=== PATIENT | male | born 1965 | race African-American/Black ===

== ENCOUNTER 2020-01-05 10:59 | Observation (INO) | payer OTHER ==
[2020-01-05] MEDS ORDERED: NITROGLYCERIN SL TABS 0.4 MG TAB SUBLINGUAL STA (11:05)
[2020-01-05] MEDS ORDERED: MORPHINE SULFATE 4 MG/ML SYRINGE IVP STA ×2 (11:18→11:19)
--- NOTE | 2020-01-05 11:21 | ED ---
Chest Pain HPI - General Chief Complaint: Chest Pain Stated Complaint: Chest Pain Time Seen by Provider: 01/05/20 11:00 Source: patient, EMS, RN notes reviewed Mode of arrival: EMS Limitations: no limitations - History of Present Illness Initial Comments: This is a 54-year-old male with a history of CHF also history of drug abuse who presents to [facility] and complain of having chest pain for last 2 days with radiation down his right arm. The pain was 5/10 severity he was given aspirin 324 mg as well as nitroglycerin which did bring the pain down to 2/10 the fevers chills nausea vomiting sweats or other symptoms. After arrival he states the pain went back up to about 3 or 4/10. He was in treatment for cocaine and alcohol use. He has not had any for 2 days he had did have marijuana this morning. MD Complaint: chest pain - Related Data Home Medications Medication Instructions Recorded Confirmed No Known Home Medications 01/05/20 01/05/20 Allergies Allergy/AdvReac Type Severity Reaction Status Date / Time No Known Allergies Allergy Verified 01/05/20 12:20 Review of Systems ROS Statement: Those systems with pertinent positive or pertinent negative responses have been documented in the HPI. ROS Other: All systems not noted in ROS Statement are negative. EKG Findings - EKG Results: EKG: interpreted by RAPHAEL, [place] [address] QRS duration 92 QT since QTC 3:30/46 minimal pulses criteria for LVH evidence of early repolarization and nonspecific ST-wave configuration.) Past Medical History Past Medical History: Hypertension History of Any Multi-Drug Resistant Organisms: None Reported Past Surgical History: No Surgical Hx Reported Past Psychological History: No Psychological Hx Reported Smoking Status: Current every day smoker Past Alcohol Use History: Abuse, Daily Past Drug Use History: Cocaine, Marijuana General Exam - General Exam Comments Initial Comments: This a well-developed well-nourished awake alert oriented times 3 male Limitations: no limitations General appearance: alert, in no apparent distress Head exam: Present: atraumatic, normocephalic, normal inspection Eye exam: Present: normal appearance, PERRL, EOMI. Absent: scleral icterus, conjunctival injection, periorbital swelling ENT exam: Present: normal exam, mucous membranes moist Neck exam: Present: normal inspection. Absent: tenderness, meningismus, lymphadenopathy Respiratory exam: Present: normal lung sounds bilaterally. Absent: respiratory distress, wheezes, rales, rhonchi, stridor Cardiovascular Exam: Present: regular rate, normal rhythm, normal heart sounds. Absent: systolic murmur, diastolic murmur, rubs, gallop, clicks GI/Abdominal exam: Present: soft, normal bowel sounds. Absent: distended, tenderness, guarding, rebound, rigid Extremities exam: Present: normal inspection, full ROM, normal capillary refill. Absent: tenderness, pedal edema, joint swelling, calf tenderness Back exam: Present: normal inspection Neurological exam: Present: alert, oriented X3, CN II-XII intact Psychiatric exam: Present: normal affect, normal mood Skin exam: Present: warm, dry, intact, normal color. Absent: rash Course Vital Signs 01/05/20 01/05/20 11:05 11:22 Temperature 98.0 F Pulse Rate 73 76 Respiratory 16 16 Rate Blood Pressure 128/91 130/90 O2 Sat by Pulse 99 100 Oximetry - Reevaluation(s) Reevaluation #1: 01/05/20 11:21 EKG showed evidence of early repolarization but not a typical presentation Dr. Weaver was consulted and did come the emergency department to see the patient. Reevaluation #2: 01/05/20 13:09 Age and has been resting currently with no further chest pain. Reevaluation #3: 01/05/20 13:11 Repeat EKG showed a sinus rhythm a 65. Interval 182 QRS duration 90 QT since QTC 382/397 pulse criteria for LVH nonspecific T-wave configuration. Essentially unchanged from the earlier one. Chest Pain MDM - MDM Imaging reviewed no acute findings. Patient does have an echocardiogram with results pending Dr. Weaver did come the emergency department to evaluate the patient. Patient will be admitted with continued enzyme evaluation. I did discuss the case with Dr. Jackson due to the patient's use of alcohol and tobacco the patient will be placed on the alcohol withdrawal protocol as well as a nicotine patch. Critical Care Time Critical Care Time: Yes Total Critical Care Time: 31 Critical Care Time: 31 minutes of critical care time which includes initial presentation with history physical labs x-rays discussed with the paramedics brought the patient. Multiple reevaluation the patient discussed with the project engineering manager discussion with the main physician admission orders and documentation the above Disposition Clinical Impression: Chest pain, ST segment changes on electrocardiogram, Substance abuse Disposition: ADMITTED IP TO THIS HOSP Condition: Stable Referrals: Nonstaff,Physician [Primary Care Provider] - 1-2 days
[2020-01-05 11:24] LABS: Basophils # (A) 0.1 k/uL (0-0.2); Basophils % (A) 1 %; Eosinophils # (A) 0.3 k/uL (0-0.7); Eosinophils % (A) 5 %; HCT 46.5 % (39.0-53.0); HGB 15.7 gm/dL (13.0-17.5); Lymphocytes # (A) 1.6 k/uL (1.0-4.8); Lymphocytes % (A) 31 %; MCHC 33.8 g/dL (31.0-37.0); MCV 91.8 fL (80.0-100.0); Mean Platelet Volume 7.8; Monocytes # (A) 0.3 k/uL (0-1.0); Monocytes % (A) 6 %; Neutrophils # (A) 2.9 k/uL (1.3-7.7); Neutrophils % (A) 56 %; Platelet Count 269 k/uL (150-450); RBC 5.07 m/uL (4.30-5.90); WBC 5.2 k/uL (3.8-10.6)
[2020-01-05 11:33] LABS: ALT 23 U/L (4-49); AST 56 U/L (17-59); African American GFR (CKD) >90 (>60 ml/min/1.73 sqM); Albumin 4.9 g/dL (3.5-5.0); Alkaline Phosphatase 95 U/L (38-126); Anion Gap 8 mmol/L; Blood Urea Nitrogen 18 mg/dL (9-20); Calcium 9.7 mg/dL (8.4-10.2); Carbon Dioxide 25 mmol/L (22-30); Chloride 106 mmol/L (98-107); Creatine Kinase 257 U/L (55-170); Glucose 60 mg/dL (74-99); Magnesium 2.1 mg/dL (1.6-2.3); Non-African American GFR(CKD) 84 (>60 ml/min/1.73 sqM); Sodium 139 mmol/L (137-145); Total Bilirubin 1.3 mg/dL (0.2-1.3); Total Protein 8.8 g/dL (6.3-8.2)
--- NOTE | 2020-01-05 11:51 | XR ---
EXAMINATION TYPE: XR chest 2V DATE OF EXAM: 01/05/2020 COMPARISON: NONE HISTORY: Chest pain. TECHNIQUE: Frontal and lateral views of the chest are obtained. FINDINGS: There is no focal air space opacity, pleural effusion, or pneumothorax seen. The cardiac silhouette size is within normal limits. The osseous structures are intact. IMPRESSION: No acute cardiopulmonary process.
[2020-01-05 12:01] LABS: D-Dimer 0.27 mg/L FEU (<0.60); INR 0.9 (<1.2); Partial Thromboplastin Time 25.3 sec (22.0-30.0); Prothrombin Time 9.4 sec (9.0-12.0)
[2020-01-05] MEDS ORDERED: HEPARIN SODIUM,PORCINE 5,000 UNIT/ML 1 ML VIAL IV ONE (13:14)
[2020-01-05] MEDS ORDERED: NITROGLYCERIN SL TABS 0.4 MG TAB SUBLINGUAL PRN (13:14)
[2020-01-05] MEDS ORDERED: HEPARIN SOD,PORK IN 0.45% NACL 25,000 UNIT in 0.45% NACL 1 250ML.BAG IV SCH (13:15)
[2020-01-05] MEDS ORDERED: NICOTINE 21MG/24HR PATCH TRANSDERM STA (13:16)
[2020-01-05] MEDS ORDERED: LORazepam 2 MG/ML INJ IV PRN ×3 (13:16)
[2020-01-05] MEDS ORDERED: THIAMINE 100 MG/ML 2 ML VIAL IM STA (13:16)
[2020-01-05] MEDS ORDERED: DEXTROSE 5%-0.45% NACL 1,000 ML IV SCH (14:15)
--- NOTE | 2020-01-05 14:17 | P.HPIM ---
History of Present Illness H&P Date: 01/05/20 Chief Complaint: Chest pain This is a 54-year-old male with past medical history significant for alcohol and cocaine abuse who presented to the emergency room with chest pain. Patient said that he wanted to check himself into [facility] today when he started complaining of chest pain radiating down to his right arm. He was instructed to come to the emergency room. He described the pain as sharp and 5 out of 10 in severity mostly in the middle of his chest. He was given sublingual nitro that improved his chest pain. He otherwise denies any fevers or chills. No p alpitation, diaphoresis, or dizziness. Patient denies any known cardiac history. He admitted that he drinks 1 pint of liquor a day. He also uses cocaine on a regular basis. Last use was 2 days ago. Agent is a current every day smoker as well. He also smokes marijuana. He denies any known past medical history. Denies hypertension, hyperlipidemia, or diabetes. Review of Systems Review of system: 14 points review of systems were obtained and were negative except to what were mentioned in the HPI. Past Medical History Past Medical History: Hypertension History of Any Multi-Drug Resistant Organisms: None Reported Past Surgical History: No Surgical Hx Reported Past Psychological History: No Psychological Hx Reported Smoking Status: Current every day smoker Past Alcohol Use History: Abuse, Daily Past Drug Use History: Cocaine, Marijuana Medications and Allergies Home Medications Medication Instructions Recorded Confirmed Type No Known Home Medications 01/05/20 01/05/20 History Allergies Allergy/AdvReac Type Severity Reaction Status Date / Time No Known Allergies Allergy Verified 01/05/20 12:20 Physical Exam Vitals: Vital Signs Temp Pulse Resp BP Pulse Ox 01/05/20 13:45 64 16 115/67 99 01/05/20 12:45 70 16 120/73 99 01/05/20 11:22 76 16 130/90 100 01/05/20 11:05 98.0 F 73 16 128/91 99 Intake and Output 01/04/20 01/05/20 01/05/20 22:59 06:59 14:59 Other: Weight 102.058 kg General: The patient is awake and alert, in no distress Eye: there is normal conjunctiva bilaterally. Neck: The neck is supple, there is no JVD. Cardiovascular: Normal S1-S2, no S3-S4, no murmurs. Respiratory: Lungs clear to auscultation bilaterally Gastrointestinal: Abdomen is soft, nontender Musculoskeletal: There is no pedal edema. Neurological:. Speech is normal. Skin: Skin is warm and dry Results CBC & Chem 7: 01/05/20 11:16 01/05/20 13:37 Labs: Abnormal Lab Results - Last 24 Hours (Table) 01/05/20 01/05/20 Range/Units 11:16 13:37 Potassium 6.0 H 5.9 H (3.5-5.1) mmol/L Glucose 60 L (74-99) mg/dL Creatine Kinase 257 H (55-170) U/L Total Protein 8.8 H (6.3-8.2) g/dL Assessment and Plan Assessment: 1. Chest pain, with typical and atypical features. 12-lead EKG showed no acute ischemic changes. Initial troponin was negative. Continue to trend troponin. We will continue telemetry monitoring. Cardiology consulted. Echocardiogram ordered. Will check fasting lipid profile. Patient was started on IV heparin drip by ED provider 2. Cocaine abuse, counseled extensively to quit. Advised that cocaine can cause chest pain 3. Tobacco and marijuana abuse: Counseled extensively to quit. Nicotine patch ordered. 4. Heavy alcohol abuse: Counseled extensively to quit. [facility] protocol as needed. 5. Hyperkalemia: Hemolyzed sample twice. Patient is very hard to stick. He denies any history of IV drug use. Repeat lab work in the morning.
[2020-01-05] MEDS: THIAMINE 100 MG TAB PO SCH (18:33)
[2020-01-06 01:32] LABS: Amphetamine Screen,Urine Not Detected (NotDetected); Barbiturate Screen,Urine Not Detected (NotDetected); Benzodiazepines Screen,Urine Not Detected (NotDetected); Cocaine Screen,Urine Detected (NotDetected); Methadone Screen, Urine Not Detected (NotDetected); Opiate Screen,Urine Detected (NotDetected); Oxycodone Screen, Urine Not Detected (NotDetected); Phencyclidine Screen,Urine Not Detected (NotDetected); Tricyclic Antidepressant,Urine Not Detected (NotDetected); Urn Cannabinoid Scrn Detected (NotDetected)
[2020-01-06 05:33] LABS: African American GFR (CKD) >90 (>60 ml/min/1.73 sqM); Anion Gap 7 mmol/L; Blood Urea Nitrogen 14 mg/dL (9-20); Calcium 9.6 mg/dL (8.4-10.2); Carbon Dioxide 27 mmol/L (22-30); Chloride 105 mmol/L (98-107); Glucose 102 mg/dL (74-99); Non-African American GFR(CKD) 84 (>60 ml/min/1.73 sqM); Potassium 4.4 mmol/L (3.5-5.1); Sodium 139 mmol/L (137-145)
[2020-01-06 05:34] LABS: Cholesterol 194 mg/dL (<200); HDL Cholesterol 62 mg/dL (40-60); LDL Cholesterol,Calculated 101 mg/dL (0-99); Triglycerides 154 mg/dL (<150)
[2020-01-06] MEDS: THIAMINE 100 MG TAB PO SCH (05:57)
[2020-01-06] MEDS ORDERED: ASPIRIN 325 MG TAB PO SCH (09:00)
--- NOTE | 2020-01-06 11:21 | P.CRDCN ---
History of Present Illness Consult date: 01/06/20 History of present illness: CHIEF COMPLAINT: Chest pain HISTORY OF PRESENT ILLNESS: This is a 54-year old male with a past medical history significant for nicotine dependence. Patient does not follow up outpatient with a civil drafting technician. We have been asked to see the patient in consultation for chest pain. Patient examined this morning at the bedside. Patient reports a history of cocaine use with his last usage around 3 days ago, alcohol abuse and drinks 1 pint of liquor a day, nicotine dependence and smokes one pack of cigarettes per day and marijuana use. The patient states he began having chest pain 3 days ago. The pain is in the midsternal region and radiated to his right arm. He states the pain has been intermittent. He states nothing makes the pain better or worse. He denies shortness of breath. At the time of examination the patient denies any chest pain at rest. He states his chest is sore to touch and with movement. He denies worsening pain with inspiration. DIAGNOSTICS: EKG reveals sinus mechanism with evidence of early repolarization Chest xray negative for acute process Laboratory data: WBC 5.2. Hemoglobin 15.7. Platelet Count 269. D-dimer 0.27. Sodium 139. Potassium 5.9. BUN 18. Creatinine 1.0. Magnesium 2.1. Troponin negative 3 Current home cardiac medications include none. REVIEW OF SYSTEMS: At the time of my exam: CONSTITUTIONAL: Denies fever or chills. HEENT: Denies blurred vision, vision changes, or eye pain. Denies hemoptysis CARDIOVASCULAR: Denies chest pain, orthopnea, PND or palpitations RESPIRATORY: No shortness of breath. GASTROINTESTINAL: Denies abdominal pain. Denies nausea or vomiting. HEMATOLOGIC: Denies bleeding disorders. GENITOURINARY: Denies any blood in urine. SKIN: Denies pruitis. Denies rash. PHYSICAL EXAM: VITAL SIGNS: Reviewed. GENERAL: Well-developed in no acute distress. HEENT: Head is normocephalic. Pupils are equal, round. Sclerae anicteric. Mucous membranes of the mouth are moist. Neck supple. No JVD or thyromegaly LUNGS: Respirations even and unlabored. Lungs essentially clear to auscultation bilaterally. HEART: Regular rate and rhythm. S1 and S2 heard. Mild discomfort upon chest wall palpation ABDOMEN: Soft. Nondistended. Nontender. EXTREMITIES: Normal range of motion. No clubbing or cyanosis. Peripheral pulses intact. No lower extremity edema NEUROLOGIC: Awake and alert. Oriented x 3. ASSESSMENT: Chest pain, atypical, troponin negative x 3 Cocaine abuse Alcohol abuse, 1 pink of liquor daily Nicotine dependence Cannabis use PLAN: Discontinue IV heparin drip Obtain 2D echo to assess cardiac structure and function Patient to undergo stress test this morning to assess for reversible ischemia If stress test is negative, patient may be discharged today from a cardiac perspective Nurse practitioner note has been reviewed by physician. Signing provider agrees with the documented findings, assessment, and plan of care. Past Medical History Past Medical History: Chest Pain / Angina, Hypertension Additional Past Medical History / Comment(s): chronic back pain, pt. states he had moore bite on his right hand in the past History of Any Multi-Drug Resistant Organisms: None Reported Past Surgical History: No Surgical Hx Reported Past Anesthesia/Blood Transfusion Reactions: No Reported Reaction Past Psychological History: Depression Additional Psychological History / Comment(s): pt. states he was recently hospitalized for depression Smoking Status: Current every day smoker Past Alcohol Use History: Abuse, Daily Additional Past Alcohol Use History / Comment(s): pt. states he smokes a pack a day and drinks a pint a day Past Drug Use History: Cocaine, Marijuana Additional Drug Use History / Comment(s): daily cocaine user, last use two days ago - Past Family History Father Family Medical History: Diabetes Mellitus Mother Family Medical History: Diabetes Mellitus Medications and Allergies Home Medications Medication Instructions Recorded Confirmed Type No Known Home Medications 01/05/20 01/05/20 History Allergies Allergy/AdvReac Type Severity Reaction Status Date / Time No Known Allergies Allergy Verified 01/05/20 12:20 Physical Exam Vitals: Vital Signs Temp Pulse Pulse Resp BP BP BP 01/06/20 09:25 97.7 F 61 16 125/80 01/06/20 08:00 61 16 01/06/20 03:30 85 16 114/75 01/06/20 00:00 66 16 134/85 01/05/20 20:00 70 16 141/89 01/05/20 15:00 75 18 01/05/20 14:50 98.1 F 75 18 121/74 01/05/20 13:45 64 16 115/67 01/05/20 12:45 70 16 120/73 01/05/20 11:22 76 16 130/90 Pulse Ox 01/06/20 09:25 97 01/06/20 08:00 01/06/20 03:30 96 01/06/20 00:00 100 01/05/20 20:00 100 01/05/20 15:00 01/05/20 14:50 98 01/05/20 13:45 99 01/05/20 12:45 99 01/05/20 11:22 100 Intake and Output 01/05/20 01/06/20 01/06/20 22:59 06:59 14:59 Intake Total 311.514 87.017 Output Total 300 Balance 311.514 87.017 -300 Intake: Intake, IV Titration 71.514 87.017 Amount Heparin Sod,Pork in 0.45% 71.514 87.017 NaCl 25,000 unit In 0.45 % NaCl 1 250ml.bag @ 9.8 UNITS/KG/HR 10.002 mls/hr IV [facility] Rx#: [id number] Oral 240 Output: Urine 300 Other: Voiding Method Toilet Toilet # Voids 1 1 Weight 93.5 kg Results 01/05/20 11:16 01/06/20 05:05 Cardiac Enzymes 01/05/20 01/05/20 01/05/20 Range/Units 11:16 11:16 13:37 AST 56 (17-59) U/L Troponin I 0.012 <0.012 (0.000-0.034) ng/mL 01/05/20 Range/Units 15:56 AST (17-59) U/L Troponin I <0.012 (0.000-0.034) ng/mL Coagulation 01/05/20 01/05/20 01/06/20 Range/Units 11:16 20:16 05:05 PT 9.4 (9.0-12.0) sec APTT 25.3 25.1 34.4 H (22.0-30.0) sec Lipids 01/06/20 Range/Units 05:05 Triglycerides 154 H (<150) mg/dL Cholesterol 194 (<200) mg/dL HDL Cholesterol 62 H (40-60) mg/dL CBC 01/05/20 Range/Units 11:16 WBC 5.2 (3.8-10.6) k/uL RBC 5.07 (4.30-5.90) m/uL Hgb 15.7 (13.0-17.5) gm/dL Hct 46.5 (39.0-53.0) % Plt Count 269 (150-450) k/uL Comprehensive Metabolic Panel 01/05/20 01/05/20 01/06/20 Range/Units 11:16 13:37 05:05 Sodium 139 139 (137-145) mmol/L Potassium 6.0 H 5.9 H 4.4 (3.5-5.1) mmol/L Chloride 106 105 (98-107) mmol/L Carbon Dioxide 25 27 (22-30) mmol/L BUN 18 14 (9-20) mg/dL Creatinine 1.00 1.01 (0.66-1.25) mg/dL Glucose 60 L 102 H (74-99) mg/dL Calcium 9.7 9.6 (8.4-10.2) mg/dL AST 56 (17-59) U/L ALT 23 (4-49) U/L Alkaline Phosphatase 95 (38-126) U/L Total Protein 8.8 H (6.3-8.2) g/dL Albumin 4.9 (3.5-5.0) g/dL Current Medications Generic Name Dose Route Start Last Admin Trade Name Freq PRN Reason Stop Dose Admin Aspirin 81 mg 01/07/20 09:00 Aspirin 81 Mg PO DAILY CLARA Lorazepam 1 mg 01/05/20 13:16 Lorazepam 2 Mg/Ml Inj IV Q2HR PRN CIWA 8 or 9 Lorazepam 1 mg 01/05/20 13:16 Lorazepam 2 Mg/Ml Inj IV Q1HR PRN CIWA 10 to 15 Lorazepam 2 mg 01/05/20 13:16 Lorazepam 2 Mg/Ml Inj IV 01/07/20 13:16 Q10M PRN CIWA 16 or higher Nitroglycerin 0.4 mg 01/05/20 13:14 Nitroglycerin Sl Tabs 0.4 Mg Tab SUBLINGUAL Q5M PRN Chest Pain Thiamine HCl 100 mg 01/05/20 17:30 01/06/20 05:57 Thiamine 100 Mg Tab PO Not Given BID-W/MEALS CLARA Intake and Output 01/05/20 01/06/20 01/06/20 22:59 06:59 14:59 Intake Total 311.514 87.017 Output Total 300 Balance 311.514 87.017 -300 Intake: Intake, IV Titration 71.514 87.017 Amount Heparin Sod,Pork in 0.45% 71.514 87.017 NaCl 25,000 unit In 0.45 % NaCl 1 250ml.bag @ 9.8 UNITS/KG/HR 10.002 mls/hr IV .[facility] Rx#: [id number] Oral 240 Output: Urine 300 Other: Voiding Method Toilet Toilet # Voids 1 1 Weight 93.5 kg 01/05/20 11:16 01/06/20 05:05
--- NOTE | 2020-01-06 12:52 | ECHOS ---
STRESS ECHOCARDIOGRAM INDICATIONS: Chest pain. MEDICATIONS: None. BASELINE HEART RATE: 63 BASELINE BLOOD PRESSURE: 106/61 MAXIMUM HEART RATE: 142 MAXIMUM BLOOD PRESSURE: 132/42 85% MPHR: 140 100% MPHR: 165 METS: 8.5 MAXIMUM STAGE REACHED: 3 TOTAL EXERCISE TIME: 7:15 CLINICAL INFORMATION: Baseline rhythm is a sinus mechanism, rate of 63, normal axis and intervals, probable pericarditis. Baseline blood pressure 106/61 mmHg. Patient exercised on Bull protocol for 7 minutes, 15 seconds, reaching a peak rate 142 beats per minute which is equal to 87% maximum predicted heart rate. Peak blood pressure 132/42 mmHg. Electrocardiograph monitoring revealed no evidence of diagnostic ischemic ST deviation. FINDINGS: Left ventricular cavity is normal, stress tomographic images reveal homogeneous and he has technetium-99m MDP uptake. The gated SPECT images revealed normal wall motion. There was no evidence of hypokinesis or dyskinesis. CONCLUSION: 1. Decreased exercise tolerance with normal echocardiograph response to exercise. 2. Normal stress echocardiogram with no evidence of stress-induced ischemia. MMODL / IJN: [id number] /
--- NOTE | 2020-01-06 13:00 | P.DS ---
Providers Date of admission: 01/05/20 13:14 Expected date of discharge: 01/06/20 Attending physician: Omkar Rizvi Consults: 01/05/20 13:14 Consult Physician Urgent Consulting Provider: Jem Weaver Consult Reason/Comments: Chest pain, EKG changes Do you want consulting provider notified?: Already Contacted Primary care physician: Physician Nonstaff Hospital Course: This is a 54-year-old male with past medical history significant for alcohol and cocaine abuse who presented to the emergency room with chest pain. Patient said that he wanted to check himself into [place] [facility] when he started complaining of chest pain radiating down to his right arm. He was instructed to come to the emergency room. Patient denies any known cardiac history. He admitted that he drinks 1 pint of liquor a day. He also uses cocaine on a regular basis. Last use was 2 days ago. Agent is a current every day smoker as well. He also smokes marijuana. He denies any known past medical history. Denies hypertension, hyperlipidemia, or diabetes. Patient was admitted to the hospital for further management of his medical problems noted below. 1. Chest pain, with typical and atypical features. 12-lead EKG showed no acute ischemic changes. Serial troponin negative 3 sets. Patient was seen and evaluated by cardiology. He underwent a stress echocardiogram that was negati ve. He was cleared for discharge home. 2. Cocaine abuse, counseled extensively to quit. Advised that cocaine can cause chest pain 3. Tobacco and marijuana abuse: Counseled extensively to quit. Nicotine patch ordered. 4. Heavy alcohol abuse: Counseled extensively to quit. Transportation will be set up for patient to return to [facility] Patient Condition at Discharge: Fair Plan - Discharge Summary Discharge Rx Participant: No New Discharge Prescriptions: No Action No Known Home Medications Discharge Medication List No Known Home Medications 01/05/20 [History] Follow up Appointment(s)/Referral(s): Nonstaff,Physician [Primary Care Provider] - 1-2 days Discharge Disposition: HOME SELF-CARE
[2020-01-06 14:04] VITALS: BP 153/91; PULSE 71; RESP 18; TEMP 98.1
[2020-01-07] MEDS ORDERED: ASPIRIN 81 MG PO SCH (09:00)
--- NOTE | 2020-01-08 13:07 | ECHOF ---
Referral Reason:Chest pain MEASUREMENTS -------- HEIGHT: 170.2 cm WEIGHT: 102.1 kg BP: RVIDd: 3.9 cm (< 3.3) IVSd: 1.8 cm (0.6 - 1.1) LVIDd: 3.7 cm (3.9 - 5.3) LVPWd: 1.3 cm (0.6 - 1.1) IVSs: 1.9 cm LVIDs: 2.7 cm LVPWs: 1.9 cm LAESV Index (A-L): 35.17 ml/m Ao Diam: 3.5 cm (2.0 - 3.7) AV Cusp: 2.4 cm (1.5 - 2.6) MV EXCURSION: 15.271 mm (> 18.000) MV EF SLOPE: 78 mm/s (70 - 150) EPSS: 0.4 cm MV E Vasyl: 0.87 m/s MV DecT: 186 ms MV A Vasyl: 0.71 m/s MV E/A Ratio: 1.24 RAP: 5.00 mmHg RVSP: 27.81 mmHg FINDINGS -------- This was a technically difficult study with suboptimal apical views. The left ventricular size is normal. There is severe concentric left ventricular hypertrophy. Ove rall left ventricular systolic function is low-normal with, an EF between 50 - 55 %. The right ventricle is normal in size. LA is moderately dilated 34-39 ml/m2 The right atrium was not well visualized. 5.0mg of Lumason was utilized for enhancement of images Interatrial and interventricular septum intact. The aortic valve is trileaflet and appears structurally normal. There is no evidence of aortic regu rgitation. There is no evidence of aortic stenosis. [id number] mitral regurgitation is present. Mild tricuspid regurgitation present. There is no evidence of pulmonary hypertension. The right v entricular systolic pressure, as measured by Doppler, is 27.81mmHg. There is no pulmonic regurgitation present. The aortic root size is normal. IVC Not well visulized. There is no pericardial effusion. CONCLUSIONS -------- 1. The left ventricular size is normal. 2. There is severe concentric left ventricular hypertrophy. 3. Overall left ventricular systolic function is low-normal with, an EF between 50 - 55 %. 4. LA is moderately dilated 34-39 ml/m2 5. [id number] mitral regurgitation is present. 6. Mild tricuspid regurgitation present. GENETICS TEACHER: Nadira Stephenson RDCS
== END 2020-01-06 15:01 | disposition home or self-care (01) ==
LOC: EC 10:59 → 3SCARD 13:14 → INTOOBSV 13:14 → 3SCARD 14:05 → UNDODISIN 01-06 15:01
PROVIDERS: ADMIT Internal Medicine; ATTEND Internal Medicine
DX: R07.89 Other chest pain (principal); E87.5 Hyperkalemia; R94.31 Abnormal electrocardiogram [ECG] [EKG]; F17.210 Nicotine dependence, cigarettes, uncomplicated; F14.10 Cocaine abuse, uncomplicated; F12.10 Cannabis abuse, uncomplicated; F10.10 Alcohol abuse, uncomplicated; I50.9 Heart failure, unspecified; G89.29 Other chronic pain; M54.9 Dorsalgia, unspecified; F32.9 Major depressive disorder, single episode, unspecified; Z71.51 Drug abuse counseling and surveillance of drug abuser; Z71.6 Tobacco abuse counseling; Z71.41 Alcohol abuse counseling and surveillance of alcoholic; Z86.79 Personal history of other diseases of the circulatory system; Z87.828 Personal history of other (healed) physical injury and trauma; Y90.9 Presence of alcohol in blood, level not specified; Z83.3 Family history of diabetes mellitus
CPT/HCPCS: 96366 ×2; 93005 ×2; 96376; 96365; 96372; 96375; 99291; 36415; 93351; 85379; 83880; 80061; 80053; 80048; 82550; 83735; 84132; 84484; 85025; 85610; 85730 ×2; 80306; 71046; G0378 ×2; C8929; S4990; J2270; J1644 ×2; J3411; Q9950; 93306; 96374

== ENCOUNTER 2023-01-12 13:33 | Observation (INO) | payer OTHER ==
[2023-01-12] MEDS ORDERED: ASPIRIN 81 MG PO STA (13:54)
[2023-01-12] MEDS ORDERED: NITROGLYCERIN OINT 1 INCH/GM PACKET TOPICAL STA (13:54)
--- NOTE | 2023-01-12 13:56 | ED ---
General Adult HPI - General Source: patient, RN notes reviewed, old records reviewed <Juan F Skinner - Last Filed: 01/12/23 14:34> <Dawit Hallman - Last Filed: 01/12/23 17:31> - General Stated complaint: Chest Pain Time Seen by Provider: 01/12/23 13:45 - History of Present Illness Initial comments: This is a 57-year-old male who presents emergency department with past medical history significant for smoking and high blood pressure. Patient comes in from [facility] area patient is therefore I'll call abuse marijuana and cocaine. Patient states the pain started last night at 8:00 and radiates from the center of his chest to the left side of his chest. Patient states he is mildly short of breath. Patient states she does have a smoker's cough in that continues nothing worse than normal. Patient denies any diaphoretic episodes. Patient denies any nausea vomiting. Patient denies any abdominal pain. Patient denies lightheadedness or dizziness. Patient denies any palpitations. (Juan F Skinner) - Related Data Home Medications Medication Instructions Recorded Confirmed ARIPiprazole [Abilify] 10 mg PO DAILY 01/12/23 01/12/23 Acetaminophen [Tylenol] 650 mg PO Q4H PRN 01/12/23 01/12/23 Calcium/Magnesium/Zinc/Marie D 1 tab PO TID PRN 01/12/23 01/12/23 Ibuprofen [Motrin Ib] 600 mg PO Q6H PRN 01/12/23 01/12/23 Icy Hot (Unknown) 1 applic TOPICAL DIRECTED PRN 01/12/23 01/12/23 Loperamide HCl [Imodium A-D] 4 mg PO QID PRN 01/12/23 01/12/23 Multivitamins, Thera [Multivitamin 1 tab PO DAILY 01/12/23 01/12/23 (formulary)] Sertraline [Zoloft] 50 mg PO DAILY 01/12/23 01/12/23 Thiamine [Vitamin B-1] 100 mg PO DAILY 01/12/23 01/12/23 guaiFENesin [guaiFENesin Oral 200 mg PO Q4H PRN 01/12/23 01/12/23 Solution] Allergies Allergy/AdvReac Type Severity Reaction Status Date / Time No Known Allergies Allergy Verified 01/05/20 12:20 Review of Systems ROS Other: All systems not noted in ROS Statement are negative. <Juan F Skinner - Last Filed: 01/12/23 14:34> ROS Other: All systems not noted in ROS Statement are negative. <Dawit Hallman - Last Filed: 01/12/23 17:31> ROS Statement: Those systems with pertinent positive or pertinent negative responses have been documented in the HPI. Past Medical History Past Medical History: Chest Pain / Angina, Hypertension Additional Past Medical History / Comment(s): chronic back pain, pt. states he had moore bite on his right hand in the past History of Any Multi-Drug Resistant Organisms: None Reported Past Surgical History: No Surgical Hx Reported Past Anesthesia/Blood Transfusion Reactions: No Reported Reaction Past Psychological History: Depression Additional Psychological History / Comment(s): pt. states he was recently hospitalized for depression Smoking Status: Current every day smoker Past Alcohol Use History: Abuse, Daily Additional Past Alcohol Use History / Comment(s): pt. states he smokes a pack a day and drinks a pint a day Past Drug Use History: Cocaine, Marijuana Additional Drug Use History / Comment(s): daily cocaine user, last use two days ago - Past Family History Father Family Medical History: Diabetes Mellitus Mother Family Medical History: Diabetes Mellitus <Juan F Skinner - Last Filed: 01/12/23 14:34> General Exam <Juan F Skinner - Last Filed: 01/12/23 14:34> - General Exam Comments Initial Comments: GENERAL: Patient is well-developed and well-nourished. Patient is nontoxic and well- hydrated and is in mild distress. ENT: Neck is soft and supple. No significant lymphadenopathy is noted. Oropharynx i s clear. Moist mucous membranes. Neck has full range of motion without eliciting any pain. EYES: The sclera were anicteric and conjunctiva were pink and moist. Extraocular movements were intact and pupils were equal round and reactive to light. Eyelids were unremarkable. PULMONARY: Unlabored respirations. Good breath sounds bilaterally. No audible rales rhonchi or wheezing was noted. CARDIOVASCULAR: There is a regular rate and rhythm without any murmurs gallops or rubs. ABDOMEN: Soft and nontender with normal bowel sounds. SKIN: Skin is clear with no lesions or rashes and otherwise unremarkable. NEUROLOGIC: Patient is alert and oriented x3. Cranial nerves II through XII are grossly intact. Motor and sensory are also intact. Normal speech, volume and content. Symmetrical smile. MUSCULOSKELETAL: Normal extremities with adequate strength and full range of motion. LYMPHATICS: No significant lymphadenopathy is noted PSYCHIATRIC: Normal psychiatric evaluation. (Juan F Skinner) Course Vital Signs 01/12/23 01/12/23 01/12/23 13:39 14:00 14:30 Temperature 98.2 F Pulse Rate 67 66 66 Respiratory 18 16 14 Rate Blood Pressure 108/75 115/69 111/74 O2 Sat by Pulse 97 97 96 Oximetry 01/12/23 15:00 Temperature Pulse Rate 67 Respiratory 14 Rate Blood Pressure 110/66 O2 Sat by Pulse 98 Oximetry Medical Decision Making <Juan F Skinner - Last Filed: 01/12/23 14:34> - Lab Data Result diagrams: 01/12/23 14:00 01/12/23 14:00 <Dawit Hallman - Last Filed: 01/12/23 17:31> - Medical Decision Making EKG was interpreted by myself. EKG shows a sinus rhythm at 60 bpm OH interval 170 QRS is 70 QT interval 366 QTC is 383. Patient's EKG shows some ST segment elevation in V3 V4 and V5 and V6 however this was seen on previous EKGs. Was pt. sent in by a medical professional or institution (AMIRAH Villanueva, PRODUCT MANAGENT INTERN, urgent care, hospital, or fpc...) When possible be specific @ -Patient was sent in by [facility] Did you speak to anyone other than the patient for history (EMS, parent, family, police, friend...)? What history was obtained from this source @ -[No] Did you review nursing and triage notes (agree or disagree)? Why? @ -[I reviewed and agree with nursing and triage notes] Were old charts reviewed (outside hosp., previous admission, EMS record, old EKG, old radiological studies, urgent care reports/EKG's, fpc records)? Report findings @ -I reviewed prior charts and EKGs on this patient Differential Diagnosis (chest pain, altered mental status, abdominal pain women, abdominal pain men, vaginal bleeding, weakness, fever, dyspnea, syncope, headache, dizziness, GI bleed, back pain, seizure, CVA, palpatations, mental health, musculoskeletal)? @ -Differential Chest Pain: Stable Angina, Unstable Angina, STEMI, NSTEMI Aortic Dissection, Pneumothorax, Musculoskeletal, Esophageal Spasm GERD, Cholecystitis, Pancreatitis, Zoster, this is not meant to be an all-inclusive list. EKG interpreted by me (3pts min.). @ -[As above] X-rays interpreted by me (1pt min.). @ -Chest x-ray shows no acute abnormality CT interpreted by me (1pt min.). @ -[None done] U/S interpreted by me (1pt. min.). @ -[None done] What testing was considered but not performed or refused? (CT, X-rays, U/S, labs)? Why? @ -[None] What meds were considered but not given or refused? Why? @ -[None] Did you discuss the management of the patient with other professionals (professionals i.e. , PA, PRODUCT MANAGENT INTERN, lab, RT, psych nurse, outreach and education social worker, brown stock washer, teacher, certification officer, shoe caser)? Give summary @ -[No] Was smoking cessation discussed for >3mins.? @ -[No] Was critical care preformed (if so, how long)? @ -[No] Were there social determinants of health that impacted care today? How? (Homelessness, low income, unemployed, alcoholism, drug addiction, transportation, low edu. Level, literacy, decrease access to med. care, nursing home, rehab)? @ -[No] Was there de-escalation of care discussed even if they declined (Discuss DNR or withdrawal of care, Hospice)? DNR status @ -[No] What co-morbidities impacted this encounter? (DM, HTN, Smoking, COPD, CAD, Cancer, CVA, ARF, Chemo, Hep., AIDS, mental health diagnosis, sleep apnea, morbid obesity)? @ -[None] Was patient admitted / discharged? Hospital course, mention meds given and route, prescriptions, significant lab abnormalities, going to OR and other pertinent info. @ -Patient was given aspirin and Nitropaste emergency department. Patient continued to have some anterior chest pain. EKG was similar to the previous EKG. Patient was signed out to Dr. Hallman and he will be taking over the care of this patient at 3 PM. (Juan F Skinner) Patient signed out to me pending results of workup. Initially seen for chest pain from [facility]. Previous provider artery spoke with cardiology who agre ed to evaluate the patient. Is an atypical type of chest pain that seems. Currently has nitro paste. When I evaluated the patient he has no pain. Was given 324 mg of aspirin as well. He has no cardiac history. Does have a polysubstance abuse history. Last used 21 days ago. Chest x-ray as interpreted by myself showed no signs of acute ischemia. EKG showed chronic changes, suspicious for a point elevation but no acute changes. Multiple comparative EKG is available. Patient's labs remarkable for an undetectable troponin as well as a d-dimer within normal limits. Lites within acceptable limits. I discussed results of the patient. He will be admitted as a cardiac observation admissi on. We will trend the troponin. Cardiology already ordered an echo. They will be consulted. Patient was in agreement with this plan. He is asking for a sandwich. Diagnosis/symptom? @ -Chest pain Acute, or Chronic, or Acute on Chronic? @ -Acute Uncomplicated (without systemic symptoms) or Complicated (systemic symptoms)? @ -Uncomplicated Side effects of treatment? @ -none Exacerbation, Progression, or Severe Exacerbation] @ -no Poses a threat to life or bodily function? @ -Possibly, yes depending on etiology which currently is undetermined. (Dawit Hallman) - Lab Data Lab Results 01/12/23 01/12/23 01/12/23 Range/Units 14:00 14:00 14:00 WBC 4.5 (3.8-10.6) k/uL RBC 4.57 (4.30-5.90) m/uL Hgb 14.1 (13.0-17.5) gm/dL Hct 41.7 (39.0-53.0) % MCV 91.2 (80.0-100.0) fL MCH 30.9 (25.0-35.0) pg MCHC 33.9 (31.0-37.0) g/dL RDW 13.7 (11.5-15.5) % Plt Count 223 (150-450) k/uL MPV 7.5 Neutrophils % 50 % Lymphocytes % 36 % Monocytes % 7 % Eosinophils % 3 % Basophils % 1 % Neutrophils # 2.3 (1.3-7.7) k/uL Lymphocytes # 1.6 (1.0-4.8) k/uL Monocytes # 0.3 (0-1.0) k/uL Eosinophils # 0.2 (0-0.7) k/uL Basophils # 0.0 (0-0.2) k/uL PT 9.6 L (10.0-12.5) sec INR 0.8 (<1.2) APTT 24.8 (22.0-30.0) sec D-Dimer 0.26 (<0.60) mg/L FEU Sodium 138 (137-145) mmol/L Potassium 4.6 (3.5-5.1) mmol/L Chloride 103 (98-107) mmol/L Carbon Dioxide 27 (22-30) mmol/L Anion Gap 8 mmol/L BUN 20 (9-20) mg/dL Creatinine 0.82 (0.66-1.25) mg/dL Est GFR (CKD-EPI)AfAm >90 (>60 ml/min/1.73 sqM) Est GFR (CKD-EPI)NonAf >90 (>60 ml/min/1.73 sqM) Glucose 87 (74-99) mg/dL Calcium 9.6 (8.4-10.2) mg/dL Magnesium 1.8 (1.6-2.3) mg/dL Total Bilirubin 0.3 (0.2-1.3) mg/dL AST 26 (17-59) U/L ALT 23 (4-49) U/L Alkaline Phosphatase 77 (38-126) U/L Troponin I (0.000-0.034) ng/mL Total Protein 6.8 (6.3-8.2) g/dL Albumin 4.0 (3.5-5.0) g/dL 01/12/23 Range/Units 14:00 WBC (3.8-10.6) k/uL RBC (4.30-5.90) m/uL Hgb (13.0-17.5) gm/dL Hct (39.0-53.0) % MCV (80.0-100.0) fL MCH (25.0-35.0) pg MCHC (31.0-37.0) g/dL RDW (11.5-15.5) % Plt Count (150-450) k/uL MPV Neutrophils % % Lymphocytes % % Monocytes % % Eosinophils % % Basophils % % Neutrophils # (1.3-7.7) k/uL Lymphocytes # (1.0-4.8) k/uL Monocytes # (0-1.0) k/uL Eosinophils # (0-0.7) k/uL Basophils # (0-0.2) k/uL PT (10.0-12.5) sec INR (<1.2) APTT (22.0-30.0) sec D-Dimer (<0.60) mg/L FEU Sodium (137-145) mmol/L Potassium (3.5-5.1) mmol/L Chloride (98-107) mmol/L Carbon Dioxide (22-30) mmol/L Anion Gap mmol/L BUN (9-20) mg/dL Creatinine (0.66-1.25) mg/dL Est GFR (CKD-EPI)AfAm (>60 ml/min/1.73 sqM) Est GFR (CKD-EPI)NonAf (>60 ml/min/1.73 sqM) Glucose (74-99) mg/dL Calcium (8.4-10.2) mg/dL Magnesium (1.6-2.3) mg/dL Total Bilirubin (0.2-1.3) mg/dL AST (17-59) U/L ALT (4-49) U/L Alkaline Phosphatase (38-126) U/L Troponin I <0.012 (0.000-0.034) ng/mL Total Protein (6.3-8.2) g/dL Albumin (3.5-5.0) g/dL Disposition <Juan F Skinner - Last Filed: 01/12/23 14:34> Time of Disposition: 16:30 <Dawit Hallman - Last Filed: 01/12/23 17:31> Clinical Impression: Chest pain Disposition: ADMITTED IP TO THIS [facility] Condition: Stable Referrals: Nonstaff,Physician [Primary Care Provider] - 1-2 days
--- NOTE | 2023-01-12 14:18 | XR ---
EXAMINATION TYPE: XR chest 2V DATE OF EXAM: 01/12/2023 COMPARISON: 01/05/2020 HISTORY: Shortness of breath TECHNIQUE: Frontal and lateral views of the chest are obtained. FINDINGS: Scattered senescent parenchymal changes noted. Hyperinflation compatible with COPD. No evidence for infiltrate. No evidence for atelectasis. Heart size is stable. Mediastinal structures are stable and grossly unremarkable. No evidence for hilar prominence. Degenerative changes dorsal spine. IMPRESSION: 1. No evidence for acute pulmonary disease.
[2023-01-12 14:53] LABS: Basophils % (A) 1 %; Eosinophils # (A) 0.2 k/uL (0-0.7); Eosinophils % (A) 3 %; HCT 41.7 % (39.0-53.0); HGB 14.1 gm/dL (13.0-17.5); Lymphocytes # (A) 1.6 k/uL (1.0-4.8); Lymphocytes % (A) 36 %; MCH 30.9 pg (25.0-35.0); MCHC 33.9 g/dL (31.0-37.0); MCV 91.2 fL (80.0-100.0); Mean Platelet Volume 7.5; Monocytes # (A) 0.3 k/uL (0-1.0); Monocytes % (A) 7 %; Neutrophils # (A) 2.3 k/uL (1.3-7.7); Neutrophils % (A) 50 %; Platelet Count 223 k/uL (150-450); RBC 4.57 m/uL (4.30-5.90); RDW 13.7 % (11.5-15.5); WBC 4.5 k/uL (3.8-10.6)
[2023-01-12] MEDS: ASPIRIN 81 MG PO SCH (15:05)
[2023-01-12 15:06] LABS: INR 0.8 (<1.2); Partial Thromboplastin Time 24.8 sec (22.0-30.0); Prothrombin Time 9.6 sec (10.0-12.5)
[2023-01-12 15:13] LABS: ALT 23 U/L (4-49); AST 26 U/L (17-59); African American GFR (CKD) >90 (>60 ml/min/1.73 sqM); Alkaline Phosphatase 77 U/L (38-126); Anion Gap 8 mmol/L; Blood Urea Nitrogen 20 mg/dL (9-20); Calcium 9.6 mg/dL (8.4-10.2); Carbon Dioxide 27 mmol/L (22-30); Chloride 103 mmol/L (98-107); Glucose 87 mg/dL (74-99); Magnesium 1.8 mg/dL (1.6-2.3); Non-African American GFR(CKD) >90 (>60 ml/min/1.73 sqM); Potassium 4.6 mmol/L (3.5-5.1); Sodium 138 mmol/L (137-145); Total Bilirubin 0.3 mg/dL (0.2-1.3); Total Protein 6.8 g/dL (6.3-8.2)
[2023-01-12] MEDS ORDERED: LOPERAMIDE 2 MG CAP PO PRN (15:52)
[2023-01-12] MEDS ORDERED: ACETAMINOPHEN TAB 325 MG TAB PO PRN (15:52)
[2023-01-12] MEDS ORDERED: guaiFENesin SYRUP 100MG/5ML 200 MG/10 ML CUP PO PRN (15:52)
[2023-01-12] MEDS ORDERED: NALOXONE 0.4 MG/ML 1 ML VIAL IV PRN (16:30)
[2023-01-12] MEDS: HEPARIN SODIUM,PORCINE 5,000 UNIT/ML 1 ML VIAL SQ SCH (23:52)
[2023-01-13 00:15] LABS: Chol/HDL Ratio 2.94 Ratio; LDL Cholesterol,Calculated 97.4 mg/dL (0.0-131.0)
--- NOTE | 2023-01-13 07:07 | P.CRDCN ---
History of Present Illness History of present illness: HISTORY OF PRESENT ILLNESS: This is a 57-year-old male with a past medical history significant for nicotine dependence, cocaine use, and alcohol abuse. Patient does not follow with a vocal music instructor. We have been asked to see the patient in consultation for chest pain. Patient examined at the bedside in the emergency room. Patient was transferred to the hospital from [place] secondary to chest pain. Patient states he began having chest pain yesterday in the middle of his chest. He reports the pain radiated down his arm. He states the pain has been constant. He states there is nothing that has made the pain better. He reports the pain is worse with deep inspiration and also with movement. The patient denies any previous cardiac history. He is a current cigarette smoker. He also reports a history of cocaine abuse and alcohol abuse and states he has been sober for 10 days. * EKG reveals sinus mechanism with early repolarization, similar to previous EKG. No signs of acute ischemia * Chest xray negative for pulmonary process * Current home cardiac medications include none * Echocardiogram completed in December 2019 revealed ejection fraction 50-55% with mild to moderate mitral regurgitation and mild tricuspid regurgitation * Patient underwent stress echocardiogram in December 2019 which was negative for ischemia REVIEW OF SYSTEMS: At the time of my exam: CONSTITUTIONAL: Denies fever or chills. HEENT: Denies blurred vision, vision changes, or eye pain. Denies hemoptysis CARDIOVASCULAR: Denies chest pain. Denies orthopnea. Denies PND. Denies palpitations RESPIRATORY: Denies shortness of breath. GASTROINTESTINAL: Denies abdominal pain. Denies nausea or vomiting. HEMATOLOGIC: Denies bleeding disorders. GENITOURINARY: Denies any blood in urine. SKIN: Denies pruitis. Denies rash. PHYSICAL EXAM: VITAL SIGNS: Reviewed. GENERAL: Well-developed in no acute distress. HEENT: Head is normocephalic. Pupils are equal, round. Sclerae anicteric. Mucous membranes of the mouth are moist. Neck supple. No JVD or thyromegaly LUNGS: Respirations even and unlabored. Lungs essentially clear to auscultation bilaterally. HEART: Regular rate and rhythm. S1 and S2 heard. Systolic murmur noted ABDOMEN: Soft. Nondistended. Nontender. EXTREMITIES: Normal range of motion. No clubbing or cyanosis. Peripheral pulses intact. No lower extremity edema NEUROLOGIC: Awake and alert. Oriented x 3. ASSESSMENT: Chest pain, atypical, reproducible with deep inspiration and movement Nicotine dependence Cocaine use Alcohol abuse PLAN: Obtain 2-D echo to assess cardiac structure and function Trend troponins Check hemoglobin A1c and lipid panel Add aspirin 81 mg daily Further recommendations pending patient's course Nurse practitioner note has been reviewed by physician. Signing provider agrees with the documented findings, assessment, and plan of care. Past Medical History Past Medical History: Chest Pain / Angina, Hypertension Additional Past Medical History / Comment(s): chronic back pain, pt. states he had moore bite on his right hand in the past History of Any Multi-Drug Resistant Organisms: None Reported Past Surgical History: No Surgical Hx Reported Past Anesthesia/Blood Transfusion Reactions: No Reported Reaction Past Psychological History: Depression Additional Psychological History / Comment(s): pt. states he was recently hospitalized for depression Smoking Status: Current every day smoker Past Alcohol Use History: Abuse, Daily Additional Past Alcohol Use History / Comment(s): pt. states he smokes a pack a day and drinks a pint a day Past Drug Use History: Cocaine, Marijuana Additional Drug Use History / Comment(s): daily cocaine user, last use two days ago - Past Family History Father Family Medical History: Diabetes Mellitus Mother Family Medical History: Diabetes Mellitus Medications and Allergies Home Medications Medication Instructions Recorded Confirmed Type ARIPiprazole [Abilify] 10 mg PO DAILY 01/12/23 01/12/23 History Acetaminophen [Tylenol] 650 mg PO Q4H PRN 01/12/23 01/12/23 History Calcium/Magnesium/Zinc/Marie D 1 tab PO TID PRN 01/12/23 01/12/23 History Ibuprofen [Motrin Ib] 600 mg PO Q6H PRN 01/12/23 01/12/23 History Icy Hot (Unknown) 1 applic TOPICAL DIRECTED PRN 01/12/23 01/12/23 History Loperamide HCl [Imodium A-D] 4 mg PO QID PRN 01/12/23 01/12/23 History Multivitamins, Thera [Multivitamin 1 tab PO DAILY 01/12/23 01/12/23 History (formulary)] Sertraline [Zoloft] 50 mg PO DAILY 01/12/23 01/12/23 History Thiamine [Vitamin B-1] 100 mg PO DAILY 01/12/23 01/12/23 History guaiFENesin [guaiFENesin Oral 200 mg PO Q4H PRN 01/12/23 01/12/23 History Solution] Allergies Allergy/AdvReac Type Severity Reaction Status Date / Time No Known Allergies Allergy Verified 01/05/20 12:20 Physical Exam Vitals: Vital Signs Temp Pulse Resp BP Pulse Ox 01/13/23 04:15 70 16 117/82 96 01/13/23 02:00 72 17 90/48 97 01/13/23 01:00 70 18 114/66 97 01/13/23 00:00 63 17 121/73 96 01/12/23 19:00 98.1 F 72 16 117/85 95 01/12/23 17:00 16 01/12/23 15:00 67 14 110/66 98 01/12/23 14:30 66 14 111/74 96 01/12/23 14:00 66 16 115/69 97 01/12/23 13:39 98.2 F 67 18 108/75 97 Results 01/12/23 14:00 01/12/23 14:00 Cardiac Enzymes 01/12/23 01/12/23 01/12/23 Range/Units 14:00 14:00 17:36 AST 26 (17-59) U/L Troponin I <0.012 <0.012 (0.000-0.034) ng/mL 01/12/23 Range/Units 20:47 AST (17-59) U/L Troponin I <0.012 (0.000-0.034) ng/mL Coagulation 01/12/23 Range/Units 14:00 PT 9.6 L (10.0-12.5) sec APTT 24.8 (22.0-30.0) sec Lipids 01/12/23 Range/Units 14:00 Triglycerides 209.00 H (0.00-149.00) mg/dL Cholesterol 211.00 H (0.00-200.00) mg/dL HDL Cholesterol 71.80 H (40.00-60.00) mg/dL Cholesterol/HDL Ratio 2.94 Ratio CBC 01/12/23 Range/Units 14:00 WBC 4.5 (3.8-10.6) k/uL RBC 4.57 (4.30-5.90) m/uL Hgb 14.1 (13.0-17.5) gm/dL Hct 41.7 (39.0-53.0) % Plt Count 223 (150-450) k/uL Comprehensive Metabolic Panel 01/12/23 Range/Units 14:00 Sodium 138 (137-145) mmol/L Potassium 4.6 (3.5-5.1) mmol/L Chloride 103 (98-107) mmol/L Carbon Dioxide 27 (22-30) mmol/L BUN 20 (9-20) mg/dL Creatinine 0.82 (0.66-1.25) mg/dL Glucose 87 (74-99) mg/dL Calcium 9.6 (8.4-10.2) mg/dL AST 26 (17-59) U/L ALT 23 (4-49) U/L Alkaline Phosphatase 77 (38-126) U/L Total Protein 6.8 (6.3-8.2) g/dL Albumin 4.0 (3.5-5.0) g/dL Current Medications Generic Name Dose Route Start Last Admin Trade Name Freq PRN Reason Stop Dose Admin Acetaminophen 650 mg 01/12/23 15:52 Acetaminophen Tab 325 Mg Tab PO Q4H PRN Fever and/ or Pain Aripiprazole 10 mg 01/13/23 09:00 Aripiprazole 10 Mg Tab PO DAILY [facility] Aspirin 81 mg 01/12/23 15:15 01/12/23 15:05 Aspirin 81 Mg PO Not Given DAILY [facility] Guaifenesin 200 mg 01/12/23 15:52 Guaifenesin Syrup 100mg/5ml 200 Mg/10 Ml Cup PO Q4H PRN Cough Heparin Sodium (Porcine) 5,000 unit 01/13/23 00:00 01/12/23 23:52 Heparin Sodium,Porcine 5,000 Unit/Ml 1 Ml Vial SQ 5,000 unit Q8HR CLARA Administration Loperamide HCl 4 mg 01/12/23 15:52 Loperamide 2 Mg Cap PO QID PRN Loose Stool Multivitamins 1 each 01/13/23 09:00 Multivitamins, Thera 1 Each Tab PO DAILY CLARA Naloxone HCl 0.2 mg 01/12/23 16:30 Naloxone 0.4 Mg/Ml 1 Ml Vial IV Q2M PRN Opioid Reversal Sertraline HCl 50 mg 01/13/23 09:00 Sertraline 50 Mg Tab PO DAILY [facility] 01/12/23 14:00 01/12/23 14:00
[2023-01-13] MEDS: ARIPiprazole 10 MG TAB PO SCH (08:09)
[2023-01-13] MEDS: SERTRALINE 50 MG TAB PO SCH (08:09)
[2023-01-13] MEDS: ATORVASTATIN 40 MG TAB PO SCH (08:09)
[2023-01-13] MEDS: MULTIVITAMINS, THERA 1 EACH TAB PO SCH (08:09)
[2023-01-13] MEDS: ASPIRIN 81 MG PO SCH (08:09)
[2023-01-13] MEDS: HEPARIN SODIUM,PORCINE 5,000 UNIT/ML 1 ML VIAL SQ SCH ×2 (08:09→14:52)
[2023-01-13 11:08] LABS: Basophils # (A) 0.03 X 10*3/uL (0.00-0.10); Basophils % (A) 0.7 %; Eosinophils # (A) 0.15 X 10*3/uL (0.04-0.35); Eosinophils % (A) 3.7 %; HGB 14.1 d/dL (13.0-17.0); Lymphocytes # (A) 1.83 X 10*3/uL (0.90-5.00); Lymphocytes % (A) 44.9 %; MCH 30.2 pg (27.0-32.0); MCHC 33.6 d/dL (32.0-37.0); MCV 89.9 FL (80.0-97.0); Mean Platelet Volume 9.7 FL (9.5-12.2); Monocytes % (A) 9.8 %; NRBC Per 100 WBC 0 X 10*3/uL (0.00-0.01); Neutrophils # (A) 1.66 X 10*3/uL (1.80-7.70); Neutrophils % (A) 40.7 %; Platelet Count 211 X 10*3/uL (140-440); RBC 4.67 X 10*6/uL (4.40-5.60); RDW 13.2 % (11.5-14.5); WBC 4.08 X 10*3/uL (4.50-10.00)
[2023-01-13 11:21] LABS: Calcium 9.7 mg/dL (8.7-10.3); Carbon Dioxide 27.1 mmol/L (21.6-31.8); Chloride 102 mmol/L (96-109); Glucose 83 mg/dL (70-110); Potassium 4.5 mmol/L (3.5-5.5); Sodium 140 mmol/L (135-145)
--- NOTE | 2023-01-13 12:25 | CA ---
Transthoracic Echo Report Name: Mark Anguiano Age: 57 Gender: M : 1965 Exam Date: 01/13/2023 11:09 Exam Location: [facility] Ht (in): 67 Wt (lb): 165 Ordering Physician: Shameka Echevarria Attending/Referring Phys: Check Totaler Nadira Stephenson RDCS Procedure CPT: Indications: LV function, CP Cardiac Hx: Technical Quality: Fair Contrast 1: Total Dose (mL): Contrast 2: Total Dose (mL): MEASUREMENTS (Male / Female) Normal Values 2D ECHO LV Diastolic Diameter PLAX 3.6 cm 4.2 - 5.9 / 3.9 - 5.3 cm LV Systolic Diameter PLAX 2.2 cm IVS Diastolic Thickness 1.3 cm 0.6 - 1.0 / 0.6 - 0.9 cm LVPW Diastolic Thickness 1.2 cm 0.6 - 1.0 / 0.6 - 0.9 cm LV Relative Wall Thickness 0.7 RV Internal Dim ED PLAX 3.9 cm LA Volume 61.4 cm??? 18 - 58 / 22 - 52 cm??? LA Volume Index 32.5 cm???/m??? 16 - 28 cm???/m??? M-MODE Aortic Root Diameter MM 3.2 cm LA Systolic Diameter MM 3.6 cm LA Ao Ratio MM 1.1 AV Cusp Separation MM 1.8 cm DOPPLER AV Peak Velocity 189.6 cm/s AV Peak Gradient 14.4 mmHg AV Mean Velocity 117.5 cm/s AV Mean Gradient 6.2 mmHg AV Velocity Time Integral 30.4 cm LVOT Peak Velocity 131.0 cm/s LVOT Peak Gradient 6.9 mmHg LVOT Velocity Time Integral 26.7 cm MV Area PHT 2.6 cm??? Mitral E Point Velocity 70.5 cm/s Mitral A Point Velocity 53.9 cm/s Mitral E to A Ratio 1.3 MV Deceleration Time 290.6 ms MV E' Velocity 9.5 cm/s Mitral E to MV E' Ratio 7.4 TR Peak Velocity 249.2 cm/s TR Peak Gradient 24.8 mmHg Right Ventricular Systolic Press 29.4 mmHg FINDINGS Left Ventricle Mildly increased left ventricular wall thickness. Left ventricular cavity size normal. Normal left ventricular systolic function with no obvious regional wall motion abnormalities. Left ventricular ejection fraction is estimated at 55-60 %. Right Ventricle Very Mild right ventricular dilatation. Normal right ventricle function. Right ventricular systolic pressure within normal limits. Right Atrium Normal right atrial size. Left Atrium Mildly increased left atrial volume. Mitral Valve Structurally normal mitral valve. No mitral stenosis, regurgitation or prolapse. Aortic Valve Trileaflet aortic valve. No aortic stenosis. Trace aortic regurgitation. Aortic valve sclerosis. Tricuspid Valve Structurally normal tricuspid valve. Mild tricuspid regurgitation. Pulmonic Valve Structurally normal pulmonic valve. Trace pulmonic regurgitation. Pericardium No pericardial effusion. Aorta Normal size aortic root and proximal ascending aorta. CONCLUSIONS LVH with preserved systolic function Previewed by: Dr. Chauncey Hamm MD (Electronically Signed) Final Date: 13 January 2023 12:24
--- NOTE | 2023-01-13 12:48 | P.PN ---
Subjective Progress Note Date: 01/13/23 HISTORY OF PRESENT ILLNESS: This is a 57-year-old male with a past medical history significant for nicotine dependence, cocaine use, and alcohol abuse. Patient does not follow with a blueprinter. We have been asked to see the patient in consultation for chest pain. Patient examined at the bedside in the emergency room. Patient was transferred to the hospital from [place] secondary to chest pain. Patient states he began having chest pain yesterday in the middle of his chest. He reports the pain radiated down his arm. He states the pain has been constant. He states there is nothing that has made the pain better. He reports the pain is worse with deep inspiration and also with movement. The patient denies any previous cardiac history. He is a current cigarette smoker. He also reports a history of cocaine abuse and alcohol abuse and states he has been sober for 10 days. * EKG reveals sinus mechanism with early repolarization, similar to previous EKG. No signs of acute ischemia * Chest xray negative for pulmonary process * Current home cardiac medications include none * Echocardiogram completed in December 2019 revealed ejection fraction 50-55% with mild to moderate mitral regurgitation and mild tricuspid regurgitation * Patient underwent stress echocardiogram in December 2019 which was negative for ischemia 01/13 Patient is seen today on the observation unit. Echocardiogram reveals LVH with preserved systolic function. Troponins are negative 3. BMP is normal. CBC unremarkable. Hemoglobin A1c 5.7. Blood pressure 126/75, heart rate in the 60s. PHYSICAL EXAM: VITAL SIGNS: Reviewed. GENERAL: Well-developed in no acute distress. HEENT: Head is normocephalic. Pupils are equal, round. Sclerae anicteric. Mucous membranes of the mouth are moist. Neck supple. No JVD or thyromegaly LUNGS: Respirations even and unlabored. Lungs essentially clear to auscultation bilaterally. HEART: Regular rate and rhythm. S1 and S2 heard. Systolic murmur noted EXTREMITIES: Normal range of motion. No clubbing or cyanosis. Peripheral pulses intact. No lower extremity edema NEUROLOGIC: Awake and alert. Oriented x 3. ASSESSMENT: Chest pain, atypical, reproducible with deep inspiration and movement Nicotine dependence Cocaine use Alcohol abuse PLAN: Patient is cleared from cardiology for discharge Recommend continuing atorvastatin. Cardiology will sign off this case and follow on an as-needed basis. Please reconsult for any new concerns. Nurse practitioner note has been reviewed by physician. Signing provider agrees with the documented findings, assessment, and plan of care. Objective - Vital Signs Vital signs: Vital Signs Temp 98.1 F 01/13/23 07:10 Pulse 62 01/13/23 07:10 Resp 16 01/13/23 07:10 BP 123/82 01/13/23 07:10 Pulse Ox 98 01/13/23 07:10 FiO2 Intake & Output 01/12/23 01/13/23 01/13/23 18:59 06:59 18:59 Weight 74.843 kg - Labs CBC & Chem 7: 01/13/23 06:56 01/13/23 06:56 Labs: Abnormal Lab Results - Last 24 Hours (Table) 01/12/23 01/12/23 Range/Units 14:00 14:00 PT 9.6 L (10.0-12.5) sec Triglycerides 209.00 H (0.00-149.00) mg/dL Cholesterol 211.00 H (0.00-200.00) mg/dL VLDL Cholesterol, Calc 41.80 H (5.00-40.00) mg/dL HDL Cholesterol 71.80 H (40.00-60.00) mg/dL
--- NOTE | 2023-01-13 17:48 | CT ---
EXAMINATION TYPE: CT chest wo con CT DLP: 301.3 mGycm, Automated exposure control for dose reduction was used. DATE OF EXAM: 01/13/2023 4:31 PM COMPARISON: Chest radiograph from same day. CLINICAL INDICATION:Male, 57 years old with history of cp; , chest pain TECHNIQUE: Multiple axial images were obtained through the chest. Sagittal and coronal reformats were created for review. Contrast used: mL of (None if empty) Oral contrast used: (None if empty) FINDINGS: LUNGS/ PLEURA: Mild emphysema changes in the lung apices. No focal consolidation, pneumothorax or ple ural effusion. AIRWAY: Patent and unremarkable. HEART: Size within normal limits. MEDIASTINUM: No gross evidence of adenopathy. VASCULATURE: No aortic aneurysm. MUSCULOSKELETAL: No acute osseous abnormalities SOFT TISSUES/LYMPH NODES: Unremarkable. LOWER NECK: No significant findings. UPPER ABDOMEN: Nonobstructing right renal 5 mm calculus. IMPRESSION: 1. No acute process. 2. Mild emphysema.
[2023-01-14] MEDS: HEPARIN SODIUM,PORCINE 5,000 UNIT/ML 1 ML VIAL SQ SCH ×2 (00:01→09:53)
[2023-01-14 08:06] VITALS: PULSE 66; RESP 18; TEMP 97.8
[2023-01-14] MEDS: ATORVASTATIN 40 MG TAB PO SCH (09:52)
[2023-01-14] MEDS: MULTIVITAMINS, THERA 1 EACH TAB PO SCH (09:52)
[2023-01-14] MEDS: SERTRALINE 50 MG TAB PO SCH (09:52)
[2023-01-14] MEDS: ARIPiprazole 10 MG TAB PO SCH (09:52)
[2023-01-14] MEDS: ASPIRIN 81 MG PO SCH (09:52)
--- NOTE | 2023-01-14 14:26 | PN ---
PROGRESS NOTE 57-year-old male came in with chest pain. Breathing treatments helped him. Chest CT shows emphysema. Echocardiogram showed preserved systolic function. He is improved with breathing treatments, possibly sent home when cleared by Cardiology. Troponins were negative. BMP is normal. Hemoglobin A1c is 5.7. Cleared from Cardiology. Continue atorvastatin inhaler. PROGNOSIS: Guarded. MMODL / IJN: [id number] /
[2023-01-14] MEDS ORDERED: SYMBICORT 160-4.5 MCG INHALER INHALATION SCH (20:00)
--- NOTE | 2023-01-15 00:37 | HP ---
HISTORY AND PHYSICAL HISTORY OF PRESENT ILLNESS: A 57-year-old, came to the emergency room with high blood pressure to [facility]. Chest pain, shortness of breath, marijuana, cocaine, started last night radiating to his chest, went to his back. No diaphoresis. No nausea, vomiting, lightheadedness, or dizziness. MEDICATIONS: 1. Abilify 10 mg at night. 2. . 3. Calcium. 4. Ibuprofen. 5. Thiamine. 6. Zoloft. 7. Multivitamin. ALLERGIES: Negative. REVIEW OF SYSTEMS: A 14-point review of systems otherwise negative. PAST MEDICAL HISTORY: Chest pain, angina, hypertension. SOCIAL HISTORY: Current everyday smoker. PHYSICAL EXAMINATION: VITAL SIGNS: Reviewed. CARDIOVASCULAR: S1, S2. LUNGS: Transmitted upper sounds. Scattered wheeze. GI: Soft. HEMATOLOGY: Negative Homans. NEUROLOGIC: Alert and oriented x3. OPHTHALMOLOGIC: Pupils equal, round, reactive. PSYCH: Fair mood and affect. Prognosis is guarded. Follow up. Wait for Cardiology to see how the patient does. Possibly discharge home. Suspect maybe he has COPD. MMODL / IJN: [id number] /
== END 2023-01-14 17:15 | disposition home or self-care (01) ==
LOC: EC 13:33 → 6NMEDSUR 16:31
PROVIDERS: ADMIT Family Medicine; ATTEND Family Medicine
DX: R07.89 Other chest pain (principal); J43.9 Emphysema, unspecified; I10 Essential (primary) hypertension; I08.1 Rheumatic disorders of both mitral and tricuspid valves; F10.10 Alcohol abuse, uncomplicated; F14.10 Cocaine abuse, uncomplicated; F17.210 Nicotine dependence, cigarettes, uncomplicated; G89.29 Other chronic pain; M54.9 Dorsalgia, unspecified; F32.A Depression, unspecified; Z79.899 Other long term (current) drug therapy; Z87.828 Personal history of other (healed) physical injury and trauma; Z83.3 Family history of diabetes mellitus
CPT/HCPCS: 96372 ×3; 99285; 36415; 94760; 93005; 93306; 85379; 80061; 80053; 80048; 83735; 84484; 85025 ×2; 85610; 85730; 83036; 71046; 71250; G0378 ×3; J1644 ×3